=== PATIENT | female | born 1990 | race Caucasian/White ===

== ENCOUNTER 2016-10-11 16:09 | Emergency (ER) | payer BC, MEDICAID ==
[~2016-10-11] VITALS: Ht 167.6 cm; Wt 63.5 kg
[2016-10-11] MEDS ORDERED: ARIP300S3 IM (16:20)
--- NOTE | 2016-10-11 16:26 | NUR ---
PATIENT TAKEN TO ROOM. WAITING FOR ER DOCTOR TO EVALUATE.
--- NOTE | 2016-10-11 17:07 | NUR ---
PATIENT BEING SEEN BY DOCTOR. PATIENT WILL HAVE RADIOLOGY EXAMS.
--- NOTE | 2016-10-11 17:45 | NUR ---
PATIENT WAITING FOR RADIOLOGY EXAMS
--- NOTE | 2016-10-11 18:36 | NUR ---
PATIENT GIVEN DISCHARGE PAPERS UNDERSTOOD. PATIENT DISCHARGED WITH FATHER.
== END 2016-10-11 18:38 | disposition home or self-care (01) ==
LOC: ER 16:09
DX: R07.0 Pain in throat (principal); R51 Headache; R11.2 Nausea with vomiting, unspecified
CPT/HCPCS: 70360; 70450; 99284; A4663